=== PATIENT | male | born 1935 | race Caucasian/White ===

== ENCOUNTER → 2019-04-16 | Outpatient (CLI) | payer OTHER, MEDICARE ==
[~2019-04-16] VITALS: Ht 177.8 cm; Wt 90.7 kg
[~2019-04-16] MED LIST: ELIQUIS5 MG PO; FLOMAX0.4 MG PO; LOPRESSOR50 PO; METHOCARBAMOL750 MG PO; MOBIC15 MG PO; NORCO 5-325 TA1 EAC1 PO
[2019-04-16 14:14] VITALS: BP 100/63
--- NOTE | 2019-04-16 14:35 | NUR ---
Pain Clinic Assessment: 1. History of Osteoarthritis: SPINE History of Rheumatoid Arthritis: DENIES 2. Height: 5 ft. 10 in. 177.8 cm. Weight: 200.0 lb. oz. 90.720 kg. Patient's BMI: 28.7 3. Vital Signs: BP: 100/63 Pulse: 74 Resp: 14 Temp: 02 Sat: 98 ECG Mon: 4. Pain Intensity: 7-9 5. Fall Risk: Dizziness: N Needs help standing or walking: Y Fallen in the last 3 months: Y Fall risk comments: 6. Patient on Blood Thinner: ELIQUIS 7. History of Hypertension: N 8. Opioid Therapy greater than 6 weeks: N Opiate Contract Signed: 9. Risk Assessment Tool Provided: 10. Functional Assessment Tool: 11. Recreational Drug Use: Never Drug Type: Tobacco Use: Never Smoker Tobacco Type: Amount or Packs/day: How Many Years: Alcohol Use: No Frequency: Quant:
--- NOTE | 2019-04-30 08:11 | HPC ---
[facility] [address] [address] PAIN MANAGEMENT CONSULTATION Name: MARÍA WILSON [id number] Admission: 04/16/19 ������������������ Attend Phys: Garcia Rai DO Discharge: ������������������ Date of : 33 Report #: [id number] THIS REPORT FOR: //name// CC: Claudia Vickers COUNTS INCLUDE 234 BEDS AT THE [facility] physician/PCP Garcia Rai DATE OF SERVICE: 04/16/2019 CHIEF COMPLAINT: Low back pain, bilateral lower extremity pain with paresthesias. HISTORY OF PRESENT ILLNESS: As you know, the patient is an 83-year-old male who has had a reported longstanding history of low back pain, bilateral lower extremity pain with paresthesias. The patient indicates pain began about 3 years ago. He denies any specific injury or trauma that may have led to symptom occurrence. He has sought evaluation and treatment at multiple physician's offices, most recent saw nurse practitioner, Pebbles Vickers at [facility] for evaluation. He was diagnosed with lumbar radiculopathy, but advised that surgical options are not possible at this time. Apparently, he has had a fusion at the L1 through L3 level, then in L4-L5 level. He also suffers from progressively worsening spinal stenosis. The patient had been referred to our clinic to discuss options of utilizing a spinal cord stimulator as a potential treatment. The patient today reports pain is continuous and constant, describes the pain as throbbing and sharp, places current pain score at 8-9/10, daily average at 8-9/10, worst pain has been a 10/10. The patient states pain is exacerbated with movement, improves with sleeping. The patient has been referred to our service to discuss treatment options for possible spinal cord stimulator implant. PAST MEDICAL HISTORY: 1. Osteoarthritis. 2. History of cerebrovascular accidents, requiring anticoagulation. 3. Chronic low back pain. 4. Benign prostatic hypertrophy. 5. Hypertension. PAST SURGICAL HISTORY: 1. Appendectomy. 2. Cholecystectomy. 3. Tonsillectomy. 4. Aneurysm repair. 5. Left total knee arthroplasty x 2. [address] [address] PAIN MANAGEMENT CONSULTATION Name: MARÍA WILSON Room #: REG CL Carie.#: [id number] Admission: 04/16/19 ������������������ Attend Phys: Garcia Rai DO Discharge: ������������������ Date of : 33 Report #: [id number] 6. Lumbar spine surgery x 3. SOCIAL HISTORY: The patient denies tobacco, alcohol, IV or illicit drug use. 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 He is trying to continue to work periodically, but he is only doing small amounts of work. He is not receiving workmen's compensation nor is he trying to obtain disability benefits. Not in litigation in regards to pain, accompanied by a family member, present in room today. REVIEW OF SYSTEMS: Positive for fatigue and weakness, wearing corrective eyewear, hearing loss with tinnitus, heart trouble, shortness of breath walking or lying flat, frequent urination, nocturia, history of stroke with minor residual deficits, memory loss with confusion secondary to stroke, cold intolerance, low back pain, bilateral lower extremity pain. All other review of systems negative per 12-point review of systems other than those listed in the history of present illness. Pain impact score 39 out of 70 indicating moderate interference of daily activities secondary to pain. ALLERGIES: No known drug allergies. CURRENT MEDICATIONS: Meloxicam 15 mg once a day, methocarbamol 750 mg b.i.d., tamsulosin 0.4 mg once a day, metoprolol 50 mg once a day, hydrocodone/acetaminophen 5/325 one tab p.o. q. 6 hours p.r.n. for pain, Eliquis 5 mg b.i.d. IMAGING: CT lumbar spine performed on 03/25/2019 shows interval fusion of L1-L2 with posterior fusion from L1 through L3, posterior lateral bone graft material is identified. No residuals spinal canal stenosis. There are moderate degenerative changes of lumbar spine present at the L1-L2 level. There is stable aortobiiliac stent grafting with common iliac artery aneurysm. There are posterior disk osteophyte complexes at L2-L3, L3-L4, and L4-L5. There is noted moderate right and [id number] left neural foraminal stenosis at L2-L3. No spinal canal stenosis at L3-L4, [id number] left and moderate right neural foraminal stenosis, no significant central canal stenosis at L4-L5, severe facet arthropathy, moderate bilateral neural foraminal stenosis right greater than left, no central canal stenosis. L5-S1 moderate facet arthropathy, moderate bilateral neural foraminal stenosis, no central canal stenosis. PQRS: The patient has osteoarthritic changes of the lumbar spine, bilateral hips and knees. No rheumatoid arthritis. He is placing pain intensity of 8-9/10. He is a fall risk, has had a fall in the last 3 months. He is not utilizing any type of ambulatory device at today's visit. He is on blood thinners in the form of Eliquis. He is treated for hypertension. He is not on opioids, has reported low opioid addiction potential based on our addiction tool. Pain impact score 39 out of 70 indicating moderate interference of daily activities secondary to pain. [address] [address] PAIN MANAGEMENT CONSULTATION Name: MARÍA WILSON Room #: REG [facility]#: [id number] Admission: 04/16/19 ������������������ Attend Phys: Garcia Rai DO Discharge: ������������������ Date of : 33 Report #: [id number] PHYSICAL EXAMINATION: VITAL SIGNS: Blood pressure 100/63, pulse 74, respiratory rate 14 and unlabored. The patient is 98% on room air. Height 5 feet 10 inches tall, weight 200 pounds, BMI calculated 28.7. GENERAL: Well-developed, well-nourished, well-hydrated, 83-year-old male. He appears his stated age. Pain is rated at 7-9/10. HEENT: Normocephalic, atraumatic. Pupils equal, round, reactive to light. Extraocular muscles are intact. Sclerae nonicteric without injection. NEUROLOGIC: Cranial nerves 2 through 12 are grossly intact. Speech fluent. The patient deemed a fair historian. LUNGS: Clear. No wheeze or rhonchi. No rales. CARDIOVASCULAR: Regular. No appreciable gallop, no rub. ABDOMEN: Soft, obese, normoactive bowel sounds. EXTREMITIES: Show no clubbing, no cyanosis, and no edema. MUSCULOSKELETAL: Lower extremity strength is equal and symmetrical 5/5, intact to light touch from L1 through S2 dermatomes. Deep tendon reflexes 2+/4 at the patella and Achilles. Ankle clonus negative. Babinski is negative. Seated straight leg raising negative. Supine straight leg raising positive. GOLD test is negative. Modified Gaenslen's positive for axial low back pain. ASSESSMENT: 1. Chronic lumbar radiculopathy. 2. Neural foraminal stenosis of lumbar spine. 3. Facet arthropathy of the lumbar spine. 4. Lumbosacral spondylosis with radicular symptoms. 5. Displacement of lumbar intervertebral disk with radiculopathy. 6. Lumbar degeneration. 7. Intractable and chronic pain. PLAN: 1. Based on today's physical exam and history the patient has provided, the description the patient uses in regards to pain, the location of symptoms and the findings of his MRI, likely source of the patient's pain is the lumbar radiculopathy. This in conjunction with facet arthropathy of the lumbar spine. We discussed with the patient treatment options based on the findings of his MRI and the reported distribution of pain. We discussed the following with the patient today. We discussed physical therapy, stretching exercise, core strengthening as treatment option. We discussed medication management with neuropathic pain medications and consistent low dose opioid for baseline pain control. We discussed epidural injections under fluoroscopic guidance, spinal cord stimulator therapy and surgical options. After reviewing the risks and benefits of all proposed treatment options, the patient chose to discuss further a spinal cord stimulator per the request of his neurosurgery team. [address] [address] PAIN MANAGEMENT CONSULTATION Name: MARÍA WILSON Room #: REG CLBlank Coffey#: [id number] Admission: 04/16/19 ������������������ Attend Phys: Garcia Rai DO Discharge: ������������������ Date of : 33 Report #: [id number] 2. The patient was advised that the process of the spinal cord stimulator requires that he is seen by Psychiatry. I have advised the patient that the psychiatrist that we use typically provide rapid appointment time, so that patient can be seen, evaluated and determined if he is an appropriate candidate from a psychiatric standpoint. We have recommended to the patient that once they have established their appointment, they should call to our clinic so that we can determine the timeframe in which we will get the dictation back from Psychiatry. If the patient is deemed an appropriate candidate, the plan will be to have the patient undergo trial implantation as quickly as possible. We will review the psychiatric evaluation once it is available. As you are aware, Psychiatric evaluations are part of the Medicare mandate and the patient will have to submit to this evaluation before we can move forward with even attempting approval of the device. 3. Once we have achieved the clearance from the psychiatrist, we will begin the process of preapproval for the device itself. We will keep the patient apprised of this process and schedule the appointment as quickly as possible to undergo the temporary implant. Assuming the implant is effective and he receives up to 70-80% improvement in overall pain, we would recommend the patient move forward with permanent implant for which he will return to see Dr. Olivas for permanent implantation. 4. No medication changes made at today's visit. The patient will continue current medical therapy as previously prescribed. 5. We will see the patient back in followup visit once we have achieved authorization for the patient to undergo the spinal cord stimulator trial implantation. I did advise the patient this could take up to a couple of months to achieve, but we will keep him apprised of our progress. Once he has undergone this procedure and assuming it is effective, we will be returning the patient's care to Dr. Olivas for permanent implant. We wish to thank nurse practitioner, Pebbles Vickers, for the referral of the patient to our clinic. We will keep you apprised of his response to treatment as we address his lumbar radicular symptoms and facet arthropathy pain. We will be returning him to your capable hands once we have completed the trial requested. Again, we wish to thank you for the opportunity to see the patient in consultation. ��������������������������������������������� <ELECTRONICALLY SIGNED> ���������������������������������������� By: Garcia Rai DO ��������������������������������������������� 04/30/19 0811 [id number] Garcia Rai DO /oralia
== END ==
LOC: PAIN 06:50
DX: M47.26 Other spondylosis with radiculopathy, lumbar region (principal); M51.16 Intervertebral disc disorders with radiculopathy, lumbar region; G89.4 Chronic pain syndrome; I10 Essential (primary) hypertension; Z79.891 Long term (current) use of opiate analgesic; Z79.899 Other long term (current) drug therapy

== ENCOUNTER → 2019-05-14 | Outpatient (CLI) | payer OTHER, MEDICARE ==
[~2019-05-14] VITALS: Ht 177.8 cm; Wt 93.4 kg
[~2019-05-14] MED LIST changes: +ASPIR 8181 MG PO; +KEFLEX500 M1 PO; +TRAMADOL 50 MG50 MG PO
[2019-05-14 07:26] VITALS: BP 114/67
--- NOTE | 2019-05-14 07:29 | NUR ---
Pain Clinic Assessment: 1. History of Osteoarthritis: SPINE History of Rheumatoid Arthritis: DENIES 2. Height: 5 ft. 10 in. 177.8 cm. Weight: 206.0 lb. oz. 93.441 kg. Patient's BMI: 29.6 3. Vital Signs: BP: 114/67 Pulse: 61 Resp: 18 Temp: 02 Sat: 95 ECG Mon: 4. Pain Intensity: 7 5. Fall Risk: Dizziness: N Needs help standing or walking: N Fallen in the last 3 months: N Fall risk comments: 6. Patient on Blood Thinner: None 7. History of Hypertension: N 8. Opioid Therapy greater than 6 weeks: N Opiate Contract Signed: 9. Risk Assessment Tool Provided: LOW-0 10. Functional Assessment Tool: 11. Recreational Drug Use: Never Drug Type: Tobacco Use: Never Smoker Tobacco Type: Amount or Packs/day: How Many Years: Alcohol Use: No Frequency: Quant:
--- NOTE | 2019-05-14 14:01 | HPC ---
[facility] [address] [place] [address] PAIN MANAGEMENT CONSULTATION Name: MARÍA WILSON [facility] [id number] Admission: 05/14/19 ������������������ Attend Phys: Garcia Rai DO Discharge: ������������������ Date of : 33 Report #: [id number] THIS REPORT FOR: //name// CC: Claudia Rai DATE OF SERVICE: 05/14/2019 CHIEF COMPLAINT: Low back pain, bilateral lower extremity pain and paresthesias. HISTORY OF PRESENT ILLNESS: As you know, the patient is an 83-year-old male who has had a long-standing history of low back pain, bilateral lower extremity pain with paresthesias. The patient states pain began about 3 years ago. As you are aware, the patient has had multiple surgical evaluations and treatments. The patient reports over 4 different lumbar spine surgeries. He has undergone fusion of the L1-L2, then L1 through L3, then L4-L5. Despite these interventions, the patient reported continued ongoing pain. He sought evaluation through [facility], where he saw nurse practitioner, Pebbles Vickers, who evaluated the patient, referred him over to trial a spinal cord stimulator. We saw the patient in consultation on 04/16/2019, where he was sent for psychiatric evaluation, returning today, having completed all of the prerequisites and having received preauthorization to undergo trial implantation. Today, the patient is reporting pain score around 7/10, involving his low back and bilateral lower extremities. ALLERGIES: No reported drug allergies. CURRENT MEDICATIONS: Meloxicam 15 mg once a day, methocarbamol 750 mg b.i.d., tamsulosin 0.4 mg once a day, metoprolol 50 mg once a day, hydrocodone 5/325 one tab p.o. q.6 hours p.r.n. for pain. SOCIAL HISTORY: The patient denies tobacco, alcohol, IV or illicit drug use. 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 He is here with his today. IMAGING: No new imaging available. PQRS: The patient has known osteoarthritic changes of lumbar spine, bilateral hips and knees. No rheumatoid arthritis. He is placing pain intensity today at 7/10. He is a fall risk and has had falls in the last 3 months. He does not utilize any type of ambulatory device despite our recommendations to do so. He is not on blood thinners currently. He is treated for hypertension. He is not on any opioids, has a low opioid addiction potential. Pain impact score remains at 39/70, moderate interference of daily activities secondary to pain. [address] [address] PAIN MANAGEMENT CONSULTATION Name: MARÍA WILSON [facility] [id number] Admission: 05/14/19 ������������������ Attend Phys: Garcia Rai DO Discharge: ������������������ Date of : 33 Report #: [id number] PHYSICAL EXAMINATION: VITAL SIGNS: Blood pressure 114/67, pulse 61, respiratory rate 18 and unlabored. The patient is 95% on room air. Height 5 feet 10 inches tall, weight 206 pounds, BMI calculated 29.6. GENERAL: Well-developed, well-nourished, well-hydrated 83-year-old male appearing stated age, pain is rated today 7/10. HEENT: Normocephalic, atraumatic. Pupils equal, round, reactive to light. EXTREMITIES: Show no clubbing, no cyanosis, and no edema. MUSCULOSKELETAL: Lower extremity strength is symmetrical 5/5, intact to light touch from L1 through S2 dermatomes. Deep tendon reflexes remain symmetrical at patella and Achilles. Ankle clonus negative. Babinski is negative. Gait is antalgic. Seated straight leg raising negative. Supine straight leg raising positive. Modified Gaenslen's positive for axial low back pain. Well-healed surgical scars over the lower lumbar spine. ASSESSMENT: 1. Chronic lumbar radiculopathy. 2. Neural foraminal stenosis of lumbar spine. 3. Facet arthropathy of the lumbar spine. 4. Lumbosacral spondylosis with radiculopathy. 5. Displacement of lumbar intervertebral disk with radiculopathy. 6. Lumbar degeneration. 7. Chronic intractable pain. PLAN: 1. The patient returns today in followup visit, having received precertification to undergo spinal cord stimulator trial implantation under fluoroscopic guidance. The patient has been advised of the risks and the benefits of this procedure. These risks include but are not necessarily limited to bleeding, bruising, infection, worsening pain, no relief of pain, also risk of temporary or permanent muscle weakness, temporary or permanent nerve damage, possible paralysis, post-dural puncture headache and . The patient states he understood and wished to proceed. 2. No medication changes made at today's visit. We did provide the patient with oral antibiotic to be taken for prophylaxis for infection. He was given the oral antibiotic today. He will take this medication as directed. 3. We will see the patient back in followup visit in 1 week. At that time, review the efficacy of the spinal cord stimulator and to determine if moving forward with permanent implant would be recommended. PROCEDURE NOTE DESCRIPTION OF PROCEDURE: Two-lead spinal cord stimulator trial implantation under fluoroscopic guidance. After obtaining written consent, the patient was taken back to fluoroscopy [address] [address] PAIN MANAGEMENT CONSULTATION Name: MARÍA WILSON Room #: REG [facility]#: [id number] Admission: 05/14/19 ������������������ Attend Phys: Garcia Rai DO Discharge: ������������������ Date of : 33 Report #: [id number], placed in prone position with pillow under abdomen to decrease lumbar lordosis. Skin overlying lumbosacral area then prepped and draped in aseptic fashion using chlorhexidine and a usual sterile draping. No IV sedation was given prior to procedure. AP fluoroscopic imaging was obtained to identify marked midline position of the T10 through L2 spinous processes. Skin was anesthetized with 1% lidocaine preservative free. Total of 7 mL given on the right and 7 mL given on the left. This was done prior to the introduction of the 14-gauge 4-inch Tuohy needles. Skin entry site was approximately at the level of the T12 vertebral body. Needle was advanced using a paramedian approach to the right of midline at approximately 45 degree angle. Loss of resistance air was utilized to verify placement within the epidural space. Epidural space entered at the T11-T12 interspace. A lateral fluoroscopic view was obtained to confirm the position of the tip of the Tuohy needle within the epidural space. Aspiration noted to be negative for heme or cerebrospinal fluid. The patient did not complain of pain or paresthesias during needle placement. The spinal cord stimulating lead was then advanced through the Tuohy needle under direct visualization within the midline. The tip of the stimulating lead was aligned with the mid portion of the T7 vertebral body and located within the midline. Final position of the 0 electrode was noted to be in position. Lateral and AP imaging was obtained to confirm the position within the posterior epidural space. A second lead was then placed on the left side following similar technique. This lead was advanced until reaching the inferior endplate of T8. This was located within the midline. AP and lateral imaging was obtained to confirm position of the second lead within the posterior epidural space. Next, a temporary extension was then connected to the end of the spinal cord stimulating leads. Stimulator lead was tested to confirm acceptable voltage. The stylets were then removed from the lead, followed by the Tuohy needle. When both the stylet and the Tuohy needles were removed, we rechecked position of the leads to confirm no movement. This was done with AP and lateral imaging. The stimulating leads were then anchored to the patient's back with benzoin, Steri-Strips and OpSite bandaging. We spent over 30 minutes of time programming the spinal cord stimulator for the patient today to obtain optimal positioning and voltage. The patient was advised on how to utilize the device over the next week. We instructed the patient on the use of the stimulator during the trial and again fully explained precautions avoiding the area getting wet. The patient was given both digital and written information to take with him today in regards to the device itself and how to operate. The patient was advised if he notes any loss of capture of pain from the device itself, he is to contact the [facility] device telemarketing sales representative. If he notes any concerning drainage from the incision sites, increased back pain, neck pain, headache, fever, chills, night sweats, any type of concerning issues, physically he is to contact the on-call pain physician. The patient tolerated procedure well, carefully escorted to the recovery room in [address] [address] PAIN MANAGEMENT CONSULTATION Name: MARÍA WILSON Room #: POLA Coffey#: [id number] Admission: 05/14/19 ������������������ Attend Phys: Garcia Rai DO Discharge: ������������������ Date of : 33 Report #: [id number] stable condition. After meeting our discharge criteria, the patient discharged home. ��������������������������������������������� <ELECTRONICALLY SIGNED> ���������������������������������������� By: Garcia Rai DO ��������������������������������������������� 05/14/19 1401 [id number] Garcia Rai DO /nt
== END | disposition home or self-care (01) ==
LOC: PAIN 06:26
DX: Z46.2 Encounter for fitting and adjustment of other devices related to nervous system and special senses (principal); M51.16 Intervertebral disc disorders with radiculopathy, lumbar region; M48.061 Spinal stenosis, lumbar region without neurogenic claudication; M47.26 Other spondylosis with radiculopathy, lumbar region; M47.27 Other spondylosis with radiculopathy, lumbosacral region; G89.29 Other chronic pain; Z79.82 Long term (current) use of aspirin; Z79.899 Other long term (current) drug therapy; Z98.890 Other specified postprocedural states

== ENCOUNTER → 2019-05-21 | Outpatient (CLI) | payer OTHER, MEDICARE ==
[~2019-05-21] VITALS: Ht 177.8 cm; Wt 93.3 kg
[2019-05-21 11:10] VITALS: BP 110/65
--- NOTE | 2019-05-28 09:14 | HPC ---
[facility] [place] [address] PAIN MANAGEMENT CONSULTATION Name: MARÍA WILSON Room #: REG CLBlank Coffey#: [id number] Admission: 05/21/19 Attend Phys: Garcia Ria DO Discharge: Date of : 31 Report #: [id number] THIS REPORT FOR: //name// CC: Claudia Vickers NP DATE OF SERVICE: 05/21/2019 CHIEF COMPLAINT: Low back pain, bilateral lower extremity pain and paresthesias. HISTORY OF PRESENT ILLNESS: As you know, the patient is an 83-year-old male who has had a longstanding history of low back pain, bilateral lower extremity pain with paresthesias. He states the pain began about 3 years ago, progressively worsened. The patient was referred to our clinic by his neurosurgery team for evaluation for a spinal cord stimulator trial implantation. The patient has completed his psychiatric evaluation and then was established an appointment last week to undergo spinal cord stimulator implantation for trial, that date was 05/14/2019. He returns today in followup visit with inconsistent pain control. He states that the first 24 hours after implantation of the device, he received good improvement in symptoms. He was able to go about all activities of daily living and did not have to use his cane or medications frequently. Unfortunately, his symptoms returned on day 2 and progressed throughout the rest of the trial. It did come to our attention that the patient had actually turned the device off somewhere between day 1 and day 2, this was rectified quickly. The patient apparently then increased the power of the device to a point where he was actually exacerbating symptoms. [facility] the [facility] to try to optimize the device, but were unable to capture pain further. He returns today in followup visit with a suboptimal spinal cord trial. We considered possibly having the patient continue the trial for the next couple of days, but it was noted when reviewing the back that the tape and OpSite bandaging had pulled away from the patient's back and the leads were exposed, which precludes us from continuing the trial. He returns reporting today pain score of 7/10, same as his pain was prior to implantation. ALLERGIES: No reported drug allergies. CURRENT MEDICATIONS: Meloxicam, methocarbamol, tamsulosin, metoprolol, and hydrocodone. SOCIAL HISTORY: The patient denies tobacco, alcohol, IV, or illicit drug use. 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 He is accompanied by his significant other in room today. IMAGING: No [place] [address] PAIN MANAGEMENT CONSULTATION Name: MARÍA WILSON Room #: REG CLI [facility]#: [id number] Admission: 05/21/19 Attend Phys: Garcia Rai DO Discharge: Date of : 31 Report #: [id number] PQRS: The patient has known arthritic changes of the lumbar spine, bilateral hips and knees. No rheumatoid arthritis. Pain today 7/10. He is not at a fall risk, has not had a fall in last 3 months. He is not on blood thinners, but is treated for hypertension. He is not on chronic opioids, has a low opioid addiction potential. He is placing pain impact score today at 47/70 indicating [id number] interference of daily activities secondary to pain. PHYSICAL EXAMINATION: GENERAL: Well-developed, well-nourished, well-hydrated 83-year-old male appearing stated age, placing pain score today 7/10. HEENT: Normocephalic, atraumatic. Pupils equal, round, reactive to light. Hearing is decreased. EXTREMITIES: Show no clubbing, no cyanosis, no edema. MUSCULOSKELETAL: Lower extremity strength 5/5, intact to light touch from L1 through S2 dermatomes. Seated straight leg raising negative. Supine straight leg raising positive. Modified Gaenslen's positive for axial low back pain. Noted two spinal cord stimulator leads on the patient's back. Steri-Strips and OpSite bandaging has become in at nonadherence, the leads are exposed. ASSESSMENT: 1. Chronic lumbar radiculopathy. 2. 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 3. Facet arthropathy of the lumbar spine. 4. Lumbosacral spondylosis with radiculopathy. 5. Displacement of lumbar intervertebral disk with radiculopathy. 6. Lumbar degeneration. 7. Chronic intractable pain. PLAN: 1. The patient returns today in followup visit having a suboptimal trial with a spinal cord stimulator. The patient reports improvement in symptoms on day 1 where he was able to reduce his reliant on medications slightly and was able to walk more easily, but still had to utilize a cane. After day 1, it was noted the patient had accidentally or intentionally turned off the device, it was restarted and adjustments were made by the device open claims representative. Unfortunately, we were unable to gain pain control from day 1 forward. This would be an indication that a spinal cord stimulator will not be effective in this patient. There is some question in this position mine whether or not this patient is a good candidate for the device as he had difficulty understanding how work even after we had multiple discussions. I am not confident he had a good idea of how the device worked even prior to seeing psychiatric physician. Given his complications with the device, I would not recommend moving forward with the therapy this in conjunction with the fact that he received transient improvement in symptoms only lasting for 12-24 hours with complete return of typical pain without efficacy following. We have advised the patient at this [facility] [address] [place] [address] PAIN MANAGEMENT CONSULTATION Name: MARÍA WILSON [facility] [id number] Admission: 05/21/19 Attend Phys: Garcia Rai DO Discharge: Date of : 31 Report #: [id number] time that we would not recommend moving forward with the device, but he will need to discuss this with the neurosurgery team who referred the patient to our clinic. 2. No medication changes made at today's visit. The patient will continue current medical therapy as previously prescribed. 3. We have requested the patient return to see the referring physician. We wish to thank them for the opportunity to see the patient in consultation. It is unfortunate the patient did not note improvement in symptoms with the device. We will be returning the patient's care to your capable hands for further evaluation and discussion of possible surgical treatment options. PROCEDURE NOTE DESCRIPTION OF PROCEDURE: Explantation of spinal cord stimulating device. The patient was placed in a seated position. We removed the remaining adherent tape and OpSite bandaging though the device itself was exposed to air upon removing the patient's shirt. There does not appear to be any infection in the area. There is no erythema or drainage at the insertion sites of the spinal cord stimulating leads. The tape was removed followed by the leads. The leads were extracted in their totality. There were 8 electrodes on each lead and the tips were in place. A sterile bandage was placed over each of the injection site. There was no drainage upon removal of the spinal cord stimulating leads. I have advised the patient to watch for increasing back pain changes at the incision sites or fever, chills or night sweats. If he notes any of these conditions, contact our clinic. We did place sterile bandages over the patient's incisions today and he met our criteria for discharge home and was sent home. <ELECTRONICALLY SIGNED> By: Garcia Rai DO 05/28/19 [id number] Garcia Rai DO /nt
== END | disposition home or self-care (01) ==
LOC: PAIN 06:54
DX: Z46.2 Encounter for fitting and adjustment of other devices related to nervous system and special senses (principal); M51.16 Intervertebral disc disorders with radiculopathy, lumbar region; G89.29 Other chronic pain; M47.26 Other spondylosis with radiculopathy, lumbar region; M47.27 Other spondylosis with radiculopathy, lumbosacral region; Z79.899 Other long term (current) drug therapy; Z98.890 Other specified postprocedural states